=== PATIENT | female | born 1965 | race Caucasian/White ===

== ENCOUNTER → 2024-02-06 09:34 | Outpatient (REF) | payer OTHER, SELFPAY | LOC: HWRAD 09:34 | PROVIDERS: ATTENDING PHYSICIAN Obstetrics & Gynecology Gynecology; FAMILY PHYSICIAN Family Medicine | DX: N95.0 Postmenopausal bleeding (principal) | CPT/HCPCS: 76830; 76856 ==

== ENCOUNTER 2024-07-26 15:43 | Inpatient (IN) | payer OTHER, SELFPAY ==
[2024-07-25] VITALS (16 sets, daily range): BP systolic 153–195; BP diastolic 78–101; BMI 27.7; BMI 27.2
--- NOTE | 2024-07-25 11:47 | ED.GENMED ---
History of Present Illness
General
Chief Complaint: Weakness
Source: patient
Exam Limitations: none
Time Seen by Provider: 07/25/24 11:26
History of Present Illness
History of Present Illness:
58-year-old female relatively sudden onset of left-sided weakness arm and leg. Started about 830. Improving moderately. No history of same. The left arm felt heavy almost like it was asleep. No headache visual issues speech issues double vision
etc. Has had some mild URI symptoms the last couple weeks
Past History
Past History
ED Past Medical History: Hypothyroidism and Other (Hyperparathytoid)
ED Past Surgical History: and Other (hyperparathyroid One lobe removed)
Social History
Tobacco: Non-smoker
Alcohol: Occasional
Drug: None
Personal:
Living: with family
Employment: Employed
Review of Systems
Review of Systems
All Other Systems: Not applicable
Respiratory: Reports no symptoms
Cardiac: Reports no symptoms
ABD/GI: Reports no symptoms
Phy Exam
Physical Exam
Physical Exam:
GENERAL: Alert and oriented in no apparent distress
EYE: Orbits normal.
NECK: Supple, no carotid bruit
ENT: Pharynx without erythema
CARDIAC: Regular rate and rhythm without any obvious murmurs.
LUNGS: Clear breath sounds,normal
ABDOMEN: Soft, without focal tenderness or distention
NEUROLOGICAL: Alert and oriented , cranial nerves II through XII intact. Speech normal. Irfkjh-ic-naej normal. No drift. Ohde-mz-bwbz normal. Light touch intact. Visual wright normal
SKIN: Warm and dry, no rash or lesion, no discoloration, skin intact.
MUSCULOSKELETAL: No edema,no deformity.Good color
PSYCH: Normal and appropriate interaction.
Course
Orders/Labs/Results
Orders:
Orders
07/25/24 11:34
Electrocardiogram (*1) Stat
Reason for Study: Other
Other Reason for Exam: neuro symptoms
CT Head & Neck Angio W/wo IV Urgent
Comment:
Reason For Exam: Subjective left-sided weakness
Cardiac Monitoring- Treatment ONCE
EKG- Treatment ONCE
IV Insert/Care/Rem.- Treatment PRN
Pulse Ox/cont/shift [RESP] Stat
Quantity: 1
07/25/24 11:37
Basic Metabolic Panel Urgent
Complete Blood Count/With Diff Urgent
07/25/24 13:36
Aspirin Chewable [Low Strength Aspirin] 324 mg PO NOW STA
Clopidogrel Bisulfate [Plavix] 300 mg PO NOW STA
Abnormal Lab Results
07/25/24
11:37
Hgb 11.5 L g/dL
(12.0-16.0)
MCV 80.3 L fL
(81.0-99.0)
MCH 24.4 L pg
(27.0-31.0)
MCHC 30.4 L g/dL
(33.0-37.0)
RDW 18.1 H %
(11.5-14.5)
Plt Count 458 H 10^3/uL
(130-400)
Chloride 97 L mmol/L
(98-107)
Glucose 192 H mg/dl
(70-99)
07/25/24 11:37
07/25/24 11:37
Vital Signs
Initial and Last Documented VS:
Initial Vital Signs
Temp Pulse Resp BP Pulse Ox
98.4 F 79 18 195/98 100
07/25/24 11:17 07/25/24 11:17 07/25/24 11:17 07/25/24 11:17 07/25/24 11:17
Last Documented Vital Signs
Temp Pulse Resp BP Pulse Ox
98.4 F 80 17 165/79 99
07/25/24 11:17 07/25/24 13:15 07/25/24 13:15 07/25/24 13:00 07/25/24 13:15
MDM/Problems Addressed
Differential Diagnosis Includes:
Patient describing neurologic symptoms however NIH is 0 and neurologic exam is normal. Neurology was nice to see the patient immediately and agrees. CT CTA. Aspirin Plavix loading.
*Radiology
Radiology exam reviewed: radiology read reviewed (Possible subacute infarct. 2 mm ICA aneurysm)
*Pulse Oximetry
Patient hypoxic: no
*EKG
Interpreted by ED Provider?: Yes
Interpretation: abnormal
Comparison EKG: changes noted
Heart Rate: 81
Rate: normal
Rhythm: sinus
[place]: normal axis
Interval: normal interval
QRS Pattern: left vent hypertrophy
Ischemia: non-specific ST changes
*Critical Care Note
Total Time (30-74mins, 75-104mins- exclusive of procedures): Not Applicable
Update Note
Update Note:
Seen by neurology. Aspirin loaded Plavix. ICA aneurysm incidental. No severe headache. Stable for admission
ED Attending Note
-
Portions of this chart may have been created with voice recognition software.� Occasional wrong word or��sound alike� substitutions may have occurred due to the inherent limitations of voice recognition software.
Discharge Plan
Departure
Patient Disposition: Admit
Date of Disposition: 07/25/24
Time of Disposition: 13:37
Presentation/result/management discussed w/ accepting MD/DO: Neurology
Discharge Problem:
Left-sided weakness, CVA versus TIA, Incidental 2 mm left ICA aneurysm
Prescriptions:
No Action
levothyroxine 75 MCG tablet
75 mcg PO DAILY
aspirin 81 MG tablet,delayed release (DR/EC)
81 mg PO DAILY 20 Days Qty: 20 0RF
benzonatate 100 MG capsule
100 mg PO TIDPRN PRN (Reason: cough) 7 Days Qty: 21 0RF
prednisone 10 MG tablet
10 mg PO .TAPER Qty: 30 0RF
Rx Instructions:
Take 40mg daily x3days, 30mg daily x3days,
20mg daily x3days, 10mg daily x3days.
ferrous sulfate [FeroSul] 325 MG tablet
325 mg PO DAILY 30 Days Qty: 30 0RF
famotidine 20 MG tablet
20 mg PO DAILY 20 Days Qty: 20 0RF
doxycycline hyclate 100 MG capsule
100 mg PO Q12 Qty: 19 0RF
Referrals:
Pedro Luis Hernandez Jr., DO [Family Provider] -
Interventions
Interventions:
*Risk Screen - Suicide Last Done: 07/25/24 11:17
*General Assessment Last Done: 07/25/24 11:17
*Neglect/Abuse Screening Last Done: 07/25/24 11:17
ED- Fall Risk Assessment Last Done: 07/25/24 11:29
ED- Cardiac Assessment Last Done: 07/25/24 11:29
ED- Neurological Assessment Last Done: 07/25/24 11:29
ED- Pulmonary Assessment Last Done: 07/25/24 11:29
Discharge Date and Time
Print Language: SWEDISH
[2024-07-25 12:05] LABS: % Basophils 0.5 % (0-2); % Eosinophils 2.3 % (0-6); % Immature Granulocytes 0.4 % (0-0.5); % Monocytes 4.9 % (1.7-9.3); % Neutrophils 69.9 % (42.2-75.2); Absolute Eosinophils 0.2 10^3/uL (0-0.7); Absolute Lymphocytes 1.7 10^3/uL (1.2-3.4); Absolute Monocytes 0.4 10^3/uL (0.1-0.6); Absolute Neutrophils 5.5 10^3/uL (1.4-6.5); Hematocrit 37.8 % (37.0-47.0); Hemoglobin 11.5 g/dL (12.0-16.0); Mean Corp Hgb Conc. 30.4 g/dL (33.0-37.0); Mean Corpuscular Hgb 24.4 pg (27.0-31.0); Mean Corpuscular Volume 80.3 fL (81.0-99.0); Mean Platelet Volume 8.5 fL (7.4-10.4); Nucleated Red Blood Cells % 0 %; Platelet Count 458 10^3/uL (130-400); Red Blood Cell Count 4.71 10^6/uL (4.20-5.40); Red Cell Dist. Width 18.1 % (11.5-14.5); White Blood Cell Count 7.8 10^3/uL (4.8-10.8)
--- NOTE | 2024-07-25 12:07 | CON.NEURO ---
Addendum entered and electronically signed by Dez Ashraf MD 07/25/24 17:20:
I reviewed the head CT imaging with the patient showing Right frontal hypodensity consistent
patient confirms symptoms began 8:30 this morning, and it has not been long enough time for a stroke to show up on head CT
will order brain MRI with and wo contrast rule out brain tumor.
CTA head/neck showing left carotid paraclinoid 2mm aneurysm, leave it alone
Original Note:
Neuro Assessment/Plan
Assessment
clinically this is a TIA, patient
Plan
Check head CT and CTA head/neck
bp 183/87, permissive HTN until CT head and CTA, ?MAP dependent
Chew 4 baby aspirin, load plavix 300
21 days of DAPT
Lipitor 40
24 hrs of heart monitoring
at our option, admit for MRI though seeing a stroke or not doesn't change the management.
Consultation
Order
Date of Consultation: 07/25/24
Requesting Provider: Ha Stearns
Reason for Consult: left sided weakness
Subjective/Objective
Subjective Data
Date of Service: July 25, 2024
58-year-old female relatively sudden onset of left-sided weakness arm and leg. Started about 830. Improving moderately. No history of same. The left arm felt heavy almost like it was asleep. No headache visual issues speech issues double vision
etc. Has had some mild URI symptoms the last couple weeks
Objective Data
Vital Signs
Temp Pulse Resp BP Pulse Ox
36.9 C 79 18 192/100 92
07/25/24 11:17 07/25/24 11:17 07/25/24 11:17 07/25/24 11:27 07/25/24 11:31
Lab Results
07/25/24 11:37
Patient Allergies
No Known Allergies Allergy (Verified 07/25/24 11:17)
Physical Exam
-
AAOx3, speech clear, language intact to naming repetition and comprehension
VFF, EOMI, face symmetric
full strength b/l UE/LE
sensation intact to touch/pin
DTR normal/symmetric
Medications
-
Home Medications
�Medication �Instructions �Recorded
levothyroxine 75 mcg tablet 75 mcg PO DAILY Thyroid 11/30/20
aspirin 81 mg tablet,delayed 81 mg PO DAILY 20 days #20 tabs 12/02/20
release
benzonatate 100 mg capsule 100 mg PO TIDPRN PRN cough 7 days 12/02/20
#21 caps
famotidine 20 mg tablet 20 mg PO DAILY 20 days #20 tabs 12/02/20
ferrous sulfate 325 mg (65 mg 325 mg PO DAILY 30 days #30 tabs 12/02/20
iron) tablet (FeroSul)
prednisone 10 mg tablet 10 mg PO .TAPER #30 tabs 12/02/20
doxycycline hyclate 100 mg capsule 100 mg PO Q12 Lung/breathing 12/22/20
issues #19 caps
[2024-07-25 12:19] LABS: Blood Urea Nitrogen 15 mg/dl (7-17); Calcium 9.8 mg/dl (8.4-10.2); Carbon Dioxide 26 mmol/L (22-30); Chloride 97 mmol/L (98-107); Estimated Creatinine Clearance 73 ml/min; Glucose 192 mg/dl (70-99); Potassium 3.8 mmol/L (3.5-5.1); Sodium 137 mmol/L (135-145); eGFR > 60.00
[2024-07-25] MEDS: LOW STRENGTH ASPIRIN 324 MG PO (13:46)
[2024-07-25] MEDS: PLAVIX 300 MG PO (13:46)
--- NOTE | 2024-07-25 14:11 | HPS.HSE ---
Family Physician
-
Family Physician: Pedro Luis Hernandez Jr.
Chief Complaint
-
left sided weakness
History of Present Illness
Patient is a 58-year-old female with past medical history significant for hypothyroidism and hx kidney stone who presented to [facility] ED for evaluation of left sided weakness. Patient stated that at approximately 0830 this morning she
had a heavy sensation in her left leg that worked its way up to her left arm that for a moment she almost felt she did not have control of them. She stated symptoms resolved so she went about her day, stopped for gas and when she got out of car
symptoms returned and she felt like she was unable to stand properly and was slightly off balance. She states that she has had a URI for past 2 weeks with cough, congestion and post nasal drip. Last week she reports a day with nausea and vomiting.
She denies fever, chills, chest pain, palpitations, dizziness, confusion, constipation, diarrhea or urinary symptoms.
Medical History
Past Medical History
Past Medical History: Reports Other
Additional Past Medical History:
herpes simplex virus
hypothyroidism
hx kidney stone
Past Surgical History: Reports Other
Additional Past Surgical History:
parathyroidectomy
x2
Social History
Tobacco: Non-smoker
Alcohol: Occasional
Drug: None
Personal:
Living: With Family
Employment: Employed
Family History
Family History: Other (Dad: CVA)
Allergies / Home Medications
Allergies reflects when Allergies were last updated in [facility].
Home Medications with original date entered in [facility]
Allergy/Medication List:
Allergies
Allergy/AdvReac Type Severity Reaction Status Date / Time
No Known Allergies Allergy Verified 07/25/24 11:17
Home Medications
cholecalciferol (vitamin D3) 25 mcg (1,000 unit) tablet (Vitamin D3) 25 mcg PO DAILY 07/25/24
valacyclovir 500 mg tablet (Valtrex) 500 mg PO DAILY 07/25/24
Review of Systems
-
History Source: Patient
Constitutional: Reports No Symptoms
EENT: Reports No Symptoms
Respiratory: Reports No Symptoms
Cardiac: Reports No Symptoms
Abdomen/GI: Reports No Symptoms
: Reports No Symptoms
Musculoskeletal: Reports No Symptoms
Skin: Reports No Symptoms
Neurological: Reports Weakness (left leg and left arm)
Endocrine: Reports No Symptoms
Hematologic/Lymphatic: Reports No Symptoms
Psych: Reports No Symptoms
Physical Exam
Vital Signs
Vital Signs
Temp Pulse Resp BP Pulse Ox
98.4 F 77 23 167/88 94
07/25/24 11:17 07/25/24 13:30 07/25/24 13:30 07/25/24 13:30 07/25/24 13:30
Physical Exam
General: Well Developed, Well Nourished, No Apparent Distress, Comfortable and Conversant
HEENT: NormoCephalic, Moist mucous membranes, Atraumatic, PERRLA, [place] Conjunctivae, Nose Appears Normal and Ears Appear Normal
Respiratory: Clear and Non Labored Respirations
Cardiac: S1/S2 and Regular Rhythm; No Murmur, Rub or Gallop
Breast: Deferred by me
GI: Soft, Non Tender, Non Distended and Normal Bowel Sounds; No Organomegaly
Rectal: Deferred by Provider
Genito-urinary: Deferred by me
Musculoskeletal: No Clubbing, No Cyanosis and No Edema
Skin: Warm and IV/Catheter Site; No Rash
Neuro: Awake, Alert, AO x 3, Nonfocal/grossly intact, Cranial Nerves Intact and No Sensory Deficits
Psych: Calm and Intact Judgment/Insight
Laboratory Results
-
07/25/24 11:37
07/25/24 11:37
Data Reviewed
-
CT Scan: Report Reviewed by me (CT Brain: There is no evidence of acute hemorrhage. There is a 1.0 cm hypodensity within the anterior/inferior right frontal lobe white matter, possible subacute infarction. Consider MRI for further evaluation. CTA
Head: There is a 2 x 2 mm posteriorly directed saccular aneurysm along the left para)
Lab Data: Labs Reviewed by me (hgb 11.5)
Impression/Plan
-
IMPRESSION/PLAN:
#left sided weakness
CT Brain: There is no evidence of acute hemorrhage. There is a 1.0 cm hypodensity within the anterior/inferior right frontal lobe white matter, possible subacute infarction. Consider MRI for further evaluation.
CTA Head: There is a 2 x 2 mm posteriorly directed saccular aneurysm along the left paraclinoid ICA. There is mild stenosis within the right paraclinoid ICA.
CTA Neck: No significant arterial stenosis. Left dominant vertebral artery.
Groundglass opacities within the bilateral upper lobes possibly hypoventilatory change, less likely interstitial edema or infection.
EKG: NORMAL SINUS RHYTHM WITH SINUS ARRHYTHMIA
MINIMAL VOLTAGE CRITERIA FOR LVH, MAY BE NORMAL VARIANT ( R in aVL )
SEPTAL INFARCT , AGE UNDETERMINED
INFERIOR INFARCT , AGE UNDETERMINED
- admit to telemetry
- start aspirin
- start Plavix
- start Lipitor
- consult Neurology
- MRI in morning
- permissive HTN
#herpes simplex virus
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
- continue valacyclovir
#hypothyroidism
#hx kidney stone
Code status: Full Code
DVT prophylaxis: SCDs
--- NOTE | 2024-07-25 14:50 | W.PN.UPDATE ---
Update Note
Progress Note Update
This is an addendum to H&P written by ASHVIN Caputo
I saw and examined the patient.
The DIRECTOR OF [employer]'s note was reviewed and I agree with the note.
Comment:
Ms. Pari Houston is a 58 yo woman with hx hypothyroidism, parathyroidism s/p surgery presents to the ER for sudden onset left-sided weakness in arm and leg followed by difficulty in balance.
Triage VS: T 98.4, P 79, RR 18, BP 195/98, SpO2 100%
On my exam symptoms currently resolved; speech normal, no pronator drift, 5/5 strength upper and lower extremitise.
LABS: WBC 7.8, Hg 11.5, PLT 458, Na 137, K+ 3.8, Cl 97, CO2 26, Cr 0.8, Glucose 192
CT Head/CTA Head/Neck:
IMPRESSION:
CT Brain: There is no evidence of acute hemorrhage. There is a 1.0 cm hypodensity within the anterior/inferior right frontal lobe white matter, possible subacute infarction. Consider MRI for further evaluation.
CTA Head: There is a 2 x 2 mm posteriorly directed saccular aneurysm along the left paraclinoid ICA. There is mild stenosis within the right paraclinoid ICA.
CTA Neck: No significant arterial stenosis. Left dominant vertebral artery.
Groundglass opacities within the bilateral upper lobes possibly hypoventilatory change, less likely interstitial edema or infection.
TIA versus Ischemic Stroke
-s/p asa/plavix loading dose in ER
-admit to observation/telemetry
-MRI ordered
-TTE
-PT/OT/ST
-continue asa/plavix x 21 days then aspirin indefinitely
-start Lipitor
-appreciate Neurology consult
-patient will likely need continued cardiac monitoring on discharge (team to touch base with cardiology pre discharge)
[2024-07-25 16:15] LABS: ALT (SGPT) 24 U/L (0-35); AST (SGOT) 22 U/L (14-36); Alkaline Phosphatase 93 U/L (38-126); Total Bilirubin 0.8 mg/dl (0.2-1.3)
[2024-07-25] MEDS: LIPITOR 40 MG PO (18:44)
[2024-07-25] MEDS: PEPCID 20 MG PO (21:17)
[2024-07-26] VITALS (10 sets, daily range): BP systolic 74–191; BP diastolic 54–100
[2024-07-26 08:09] LABS: Hematocrit 34.2 % (37.0-47.0); Hemoglobin 10.6 g/dL (12.0-16.0); Mean Corpuscular Hgb 25.1 pg (27.0-31.0); Mean Platelet Volume 8.7 fL (7.4-10.4); Platelet Count 414 10^3/uL (130-400); Red Blood Cell Count 4.22 10^6/uL (4.20-5.40); White Blood Cell Count 6.5 10^3/uL (4.8-10.8)
[2024-07-26 08:17] LABS: Blood Urea Nitrogen 15 mg/dl (7-17); Calcium 9.4 mg/dl (8.4-10.2); Carbon Dioxide 26 mmol/L (22-30); Chloride 104 mmol/L (98-107); Estimated Creatinine Clearance 83 ml/min; Glucose 125 mg/dl (70-99); Sodium 138 mmol/L (135-145); eGFR > 60.00
[2024-07-26] MEDS: PLAVIX 75 MG PO (08:19)
[2024-07-26] MEDS: LOW STRENGTH ASPIRIN 81 MG PO (08:19)
[2024-07-26] MEDS: VALTREX 500 MG PO (08:19)
[2024-07-26 09:12] LABS: HDL Cholesterol 57 mg/dl; LDL Cholesterol, Calculated 127 mg/dl; Total Cholesterol 201 mg/dl (50-199); Triglyceride 86 mg/dl (10-149); Very Low Density Lipoprotein 17 mg/dl (0-30)
--- NOTE | 2024-07-26 10:02 | W.PN.NEURO.1 ---
Today's Communication / Plan
-
low grade glioma neurosurgical evaluation requested
d/c aspirin and Plavix
continue Lipitor 40 for now
MRI findings discussed with patient
Neuro Assessment/Plan
Assessment
Head CT 'right frontal periventricular white matter subacute stroke'
CTA head/neck no stenosis or occlusions, 2mm paraclinoid aneurysm
Brain MRI w and wo contrast imgs and rept rev'd, right frontal periventricular white matter lesion, 1.7 cm, agree most likely low grade glioma, without mass effect or edema
clinically presented as TIA
Head CT apparent subacute stroke, however timing of symptoms does not match, so MRI with gado was obtained finding low grade glioma
Plan
low grade glioma neurosurgical evaluation requested
d/c aspirin and Plavix
continue Lipitor 40 for now
MRI findings discussed with patient
Subjective/Objective
Subjective Data
Date of Service: July 26, 2024
feels well.
MRI found to have low grade glioma, as the timing did not make sense for a subacute stroke.
no seizure history
Objective Data
Vital Signs
Temp Pulse Resp BP Pulse Ox
36.4 C 69 18 168/98 98
07/26/24 07:45 07/26/24 07:45 07/26/24 07:45 07/26/24 07:45 07/26/24 08:10
Lab Results
07/26/24 07:38
07/26/24 07:38
Sodium 138 mmol/L (135-145) 07/26/24 07:38
Potassium 4.0 mmol/L (3.5-5.1) 07/26/24 07:38
BUN 15 mg/dl (7-17) 07/26/24 07:38
Glucose 125 mg/dl (70-99) H 07/26/24 07:38
Calcium 9.4 mg/dl (8.4-10.2) 07/26/24 07:38
LDL Cholesterol, Calc 127 mg/dl 07/26/24 07:38
Patient Allergies
No Known Allergies Allergy (Verified 07/25/24 11:17)
Physical Exam
-
AAOx3, speech clear, language intact to naming repetition and comprehension
VFF, EOMI, face symmetric
full strength b/l UE/LE
sensation intact to touch/pin
DTR normal/symmetric
[2024-07-26 12:45] LABS: Glycohemoglobin (HgbA1c) 6.6 % (4.0-5.6)
--- NOTE | 2024-07-26 13:42 | CON.NS ---
Consultation
-
Date/Time Consultation Performed: 13:42; 07/26/2024
Performing Provider: Nino
Chief Complaint
History of Present Illness
This is a neurosurgical consultation on a 58-year-old female with active medical issues including hypothyroidism, history of kidney stone, who presented with left-sided weakness. She reported a heavy sensation in her left leg that worked its way up
her left arm with sensation of not having any control over them. Symptoms then recurred later on that day. She did have a upper respiratory infection for the last several weeks. She presented to the emergency room for further evaluation. CT of
the head demonstrated hypodense 1 cm area within the right anterior inferior frontal lobe white matter, MRI was then obtained. Neurology was consulted.
MRI may note of possible low-grade glioma, and therefore neurosurgery was consulted.
Patient seen and examined. Patient's friend is in room. Patient reports that she had sudden onset of heaviness of the left arm, and left leg while she was in the shower yesterday morning. The symptoms then resolved, and then when she was on her
way to work, and at the gas station, the symptoms came on again where she felt like her left side would give out on her. This did not affect her face. She denies having symptoms prior. She does not have a family history of demyelinating disease,
multiple sclerosis. However, she does report that she does not know the entire medical history with regards to her siblings.
She reports that she has had longstanding history of migraine headaches, usually which initiate with visual changes, which appear to be consistent with scintillating scotomas, and alleviated by laying down.
She cannot recall a specific episode where she has had significant pain behind the eye, or any diplopia.
She reports that she has never had any prior cranial imaging other than this admission.
Review of Systems
-
10 point review systems including constitutional, ENT, cardiovascular, respiratory, GI, , endocrinologic, hematologic, neurologic, musculoskeletal was performed, and was negative, except for stated in HPI
Medication and Allergies
Home Medications
Home Medications
�Medication �Instructions �Recorded
cholecalciferol (vitamin D3) 25 25 mcg PO DAILY Supplement 07/25/24
mcg (1,000 unit) tablet (Vitamin
D3)
valacyclovir 500 mg tablet 500 mg PO DAILY Infection 07/25/24
(Valtrex)
Allergies
Allergies
Allergy/AdvReac Type Severity Reaction Status Date / Time
No Known Allergies Allergy Verified 07/25/24 11:17
Physical Exam
-
Exam:
Awake, alert, no apparent distress
Cranial nerves II through grossly intact
Motor: 5/5 strength bilaterally in upper extremities with no evidence of pronator drift.
Speech is fluent, comprehension intact, repetition normal
Sensation to light touch is intact bilaterally in upper and lower extremities
Head is normocephalic atraumatic
Neck is supple
Breathing nonlabored
Cardiac: Regular rate
Abdomen soft
Extremities are warm
MRI of the brain with and without contrast performed on 07/25/2024 was reviewed. Images reviewed interpreted by me. There is evidence of a T2, FLAIR signal hyperintense lesion which measures approximately 1.5 cm in largest diameter just adjacent to
the right frontal horn of the lateral ventricle. There is no evidence of abnormal contrast-enhancement. Imaging could be consistent with possible encephalomalacia from prior stroke, versus low-grade glioma. DWI images do not demonstrate
restricted diffusion.
Agree with radiology report the differential diagnosis also includes chronic ischemia and gliosis from chronic ischemia, versus demyelinating lesion.
Assessment / Plan
-
This is a 58-year-old female who presents with acute onset of intermittent symptoms of left-sided weakness of arm and leg. It is not associated with any headache, or speech changes.
Imaging demonstrates non enhancing deep white matter right frontal lesion, periventricular with no obvious evidence of adjacent vasogenic edema.
Differential diagnosis includes low-grade glioma, versus demyelinating lesion, versus chronic gliosis.
Extensive discussion was held with the patient at bedside. At the present time, I would like to hold off on any urgent/emergent biopsy. Would recommend ruling out other diagnoses, which would include demyelinating. Recommend outpatient follow-up
with repeat brain MRI in approximately 10 to 12 weeks.
If at that time, workup is negative, we can discuss management options which would include excisional biopsy, versus expectant management with ongoing surveillance imaging.
She expresses understanding of this, and all questions or concerns that she and her friend had were answered and addressed.
--- NOTE | 2024-07-26 13:58 | W.PN.HOSP.TC ---
Addendum entered and electronically signed by Igncaia Brush MD 07/26/24 16:07:
I saw and evaluated the patient independently. I reviewed the resident�s note and agree with findings and plan as documented by Dr. Balderas.
GENERAL: well developed, well nourished, female in no apparent distress
HEENT: NC/AT--no O2 requirements
HEART: regular rate and rhythm, +S1, +S2
LUNGS : clear to auscultation bilaterally
ABDOM: soft, nontender, nondistended, + bowel sounds
EXT: no cyanosis, clubbing, or edema
NEUROLOGIC: grossly intact
Left-sided weakness--brought in for stroke w/u but MRI positive for glioma--apprec neuro and neurosurgery--cannot r/u demyelinating issue (i. e. MS)--for LP today--apprec IR--stop asa/plavix--cont statin for LDL 120
URI--Chest congestion, nasal congestion--On CTA, groundglass opacities noted in bilateral upper lobes--start cephalexin 500 mg TID x 7 days
Possible Type 2 Diabetes Mellitus--HGB A1C 6.6 but fasting BS 125--would not start any meds at this time--would follow up with PCP
DVT proph
code status -- FULL CODE
Original Note:
Today's Communication/Plan
-
Neurosurgery eval
Assessment / Plan
Assessment / Plan
58-year-old female who presents with acute onset left sided arm and leg weakness
Left-sided weakness:
Initial suspicion for stroke given acute onset neurodeficits. Ruled out with subsequent imaging
CTA with 1 cm hypodensity in inferior right frontal lobe.
MRI with 1.7 cm lesion in the right frontal lobe periventricular white matter, most suspicious for a low-grade glioma. No evidence of acute infarct.
-Discontinue DAPT
-Lipid panel LDL 120, continue statin
-Appreciate neuro recs
-Will await neurosurgical evaluation
URI:
Chest congestion, nasal congestion:
On CTA, groundglass opacities noted in bilateral upper lobes
Diabetes Mellitus:
New diagnosis. HbA1c 6.6
-Outpatient follow up
Anticipated Discharge: Within 24 hours
Subjective/Interval History
-
Date of Service: July 26, 2024
No recurrence of symptoms. No acute overnight events
Objective Data
-
Labs:
Laboratory Results
07/26/24
07:38
WBC 6.5
Hgb 10.6 L
Hct 34.2 L
Plt Count 414 H
Sodium 138
Potassium 4.0
Chloride 104
Carbon Dioxide 26
BUN 15
Creatinine 0.7
Glucose 125 H
Calcium 9.4
Vital Signs:
Vital Signs
Temp Pulse Resp BP Pulse Ox
97.6 F 67 22 186/94 97
07/26/24 11:23 07/26/24 11:23 07/26/24 11:23 07/26/24 11:23 07/26/24 11:23
I&O
07/25/24 07/26/24 07/27/24
06:59 06:59 06:59
Intake Total 480 / 480
Balance 480 / 480
Review of Systems
-
History Source: Patient
Constitutional: Denies Fever
Respiratory: Denies No Symptoms
Cardiac: Denies Chest Pain
Neuro: Denies Weakness or Numbness
Physical Exam
-
General: Well Developed, Well Nourished, No Apparent Distress and Comfortable
HEENT: Normocephalic, Atraumatic and Moist Mucous Membranes
Respiratory: Clear to Auscultation and Non Labored Respirations; Negative Wheezes, Rales, Rhonchi or Crackles
Cardiac: Regular Rhythm and S1/S2; Negative Murmur, Rub or Calf Tenderness
GI: Soft, Nontender, Nondistended and Normal Bowel Sounds
Skin: Warm and Dry
Neuro: Awake, Alert, Oriented, No Motor Deficits, No Sensory Deficits and Other (Cranial nerves 2-12 intact, NIHSS = 0); Negative Slurred Speech or Facial Droop
Psych: Calm
[2024-07-26] MEDS: KEFLEX 500 MG PO ×2 (16:03→21:13)
[2024-07-26 17:40] LABS: CSF Tube # 4
[2024-07-26 17:41] LABS: CSF Clarity Clear; CSF Color Colorless
[2024-07-26 17:48] LABS: Spinal Fluid Glucose 62 mg/dl (40-70); Spinal Fluid Protein 66 mg/dl (12-60)
--- NOTE | 2024-07-26 17:59 | CM ---
Alert awake oriented patient who lives with her Dontae in a 2 story home with 2 steps to enter and bed bathroom first floor.Spoke with mary Barron while pt off floor.She is independent in driving and in all activities of daily living.Regular
Observation letter given explained . Copt not signed.
No adaptive devices
Never had VN/SNF
Pharmacy [facility]
PCP Dr Hernandez
PLAN Home no anticipated needs
[2024-07-26 18:17] LABS: White Cell Count/CSF 3 mm^3 (0-5)
[2024-07-26] MEDS: LIPITOR 40 MG PO (18:23)
[2024-07-26 18:40] LABS: Red Cell Count/CSF 74 mm^3
--- NOTE | 2024-07-26 19:47 | PTCARENOTE ---
Patient and patient's family expressed that they would like the patient transferred to [facility] for continued care. They were made aware to speak with the medical team in the AM. Dr Ashraf and Dr Brush updated.
[2024-07-26] MEDS: TRANDATE 100 MG PO (20:26)
[2024-07-26] MEDS: MELATONIN 5 MG PO (21:13)
[2024-07-26] MEDS: PEPCID 20 MG PO (21:13)
[2024-07-27] VITALS (8 sets, daily range): BP systolic 111–172; BP diastolic 63–83
[2024-07-27 07:22] LABS: Hematocrit 33.4 % (37.0-47.0); Hemoglobin 10.5 g/dL (12.0-16.0); Mean Corp Hgb Conc. 31.4 g/dL (33.0-37.0); Mean Corpuscular Hgb 25.1 pg (27.0-31.0); Mean Corpuscular Volume 79.7 fL (81.0-99.0); Mean Platelet Volume 8.6 fL (7.4-10.4); Platelet Count 393 10^3/uL (130-400); Red Blood Cell Count 4.19 10^6/uL (4.20-5.40); Red Cell Dist. Width 17.8 % (11.5-14.5); White Blood Cell Count 5.4 10^3/uL (4.8-10.8)
[2024-07-27 08:03] LABS: Blood Urea Nitrogen 18 mg/dl (7-17); Calcium 9.3 mg/dl (8.4-10.2); Carbon Dioxide 23 mmol/L (22-30); Chloride 105 mmol/L (98-107); Estimated Creatinine Clearance 83 ml/min; Glucose 112 mg/dl (70-99); Potassium 4.3 mmol/L (3.5-5.1); Sodium 139 mmol/L (135-145); eGFR > 60.00
[2024-07-27] MEDS: FLUSH (NSS) 1 FLUSH IV (10:02)
[2024-07-27] MEDS: TRANDATE 100 MG PO ×2 (10:03→20:28)
[2024-07-27] MEDS: KEFLEX 500 MG PO ×3 (10:03→22:56)
[2024-07-27] MEDS: VALTREX 500 MG PO (10:03)
--- NOTE | 2024-07-27 13:54 | W.PN.HOSP.TC ---
Today's Communication/Plan
-
follow up on LP
await brain SPECT
possible d/c Monday? after scan
Assessment / Plan
Assessment / Plan
pt is a 58 year old female
Left-sided weakness--brought in for stroke w/u but MRI positive for glioma--apprec neuro and neurosurgery--cannot r/u demyelinating issue (i. e. MS)--s/p LP 07/26/24--apprec IR--stop asa/plavix--cont statin for LDL 120--for brain SPECT scan Monday
URI--Chest congestion, nasal congestion--On CTA, ground glass opacities noted in bilateral upper lobes--start cephalexin 500 mg TID x 7 days
Possible Type 2 Diabetes Mellitus--HGB A1C 6.6 but fasting BS 125, 112--random 192 (IF anything, would be prediabetes in my opinion)--would not start any meds at this time--would follow up with PCP
Essential HTN--cont labetalol--would d/c on med--low dose Xanax PRN for anxiety (from new diagnosis above)
DVT proph
code status -- FULL CODE
Anticipated Discharge: > 48 hours
Subjective/Interval History
-
Date of Service: July 27, 2024
pt without c/o
Objective Data
-
Labs:
Laboratory Results
07/27/24
06:26
WBC 5.4
Hgb 10.5 L
Hct 33.4 L
Plt Count 393
Sodium 139
Potassium 4.3
Chloride 105
Carbon Dioxide 23
BUN 18 H
Creatinine 0.7
Glucose 112 H
Calcium 9.3
Vital Signs:
max temp for 24 hours
07/26/24
17:40
Temp 98 F
Vital Signs
Temp Pulse Resp BP Pulse Ox
97.4 F 58 18 150/76 99
07/27/24 11:50 07/27/24 11:50 07/27/24 11:50 07/27/24 11:50 07/27/24 11:50
I&O
07/26/24 07/27/24 07/28/24
06:59 06:59 06:59
Intake Total 480 / 480 480 / 480
Balance 480 / 480 480 / 480
Review of Systems
-
All other systems: Reviewed and negative
Physical Exam
-
General: Well Developed, Well Nourished and No Apparent Distress
HEENT: Normocephalic and Atraumatic
Respiratory: Clear to Auscultation; Negative Wheezes or Rhonchi
Cardiac: Regular Rhythm and S1/S2; Negative Murmur
GI: Soft, Nontender, Nondistended and Normal Bowel Sounds
Musculoskeletal: No Clubbing, No Cyanosis and No Edema
Neuro: Awake
Psych: Calm
[2024-07-27] MEDS: LIPITOR 40 MG PO (17:48)
[2024-07-27] MEDS: PEPCID 20 MG PO (22:56)
[2024-07-27] MEDS: MELATONIN 5 MG PO (22:56)
[2024-07-28 03:19] VITALS: BP 131/68
[2024-07-28 06:59] LABS: Mean Corp Hgb Conc. 31.3 g/dL (33.0-37.0); Mean Corpuscular Hgb 25.3 pg (27.0-31.0); Mean Corpuscular Volume 80.8 fL (81.0-99.0); Mean Platelet Volume 9.3 fL (7.4-10.4); Platelet Count 395 10^3/uL (130-400); Red Blood Cell Count 3.96 10^6/uL (4.20-5.40); Red Cell Dist. Width 17.9 % (11.5-14.5); White Blood Cell Count 6.2 10^3/uL (4.8-10.8)
[2024-07-28 07:37] LABS: Blood Urea Nitrogen 21 mg/dl (7-17); Calcium 9.2 mg/dl (8.4-10.2); Carbon Dioxide 25 mmol/L (22-30); Chloride 106 mmol/L (98-107); Estimated Creatinine Clearance 83 ml/min; Glucose 115 mg/dl (70-99); Potassium 4.5 mmol/L (3.5-5.1); Sodium 139 mmol/L (135-145); eGFR > 60.00
[2024-07-28 07:45] VITALS: BP 158/78
[2024-07-28] MEDS: KEFLEX 500 MG PO ×3 (09:39→21:03)
[2024-07-28] MEDS: FLUSH (NSS) 1 FLUSH IV (09:39)
[2024-07-28] MEDS: TRANDATE 100 MG PO ×2 (09:39→21:03)
[2024-07-28] MEDS: VALTREX 500 MG PO (09:40)
--- NOTE | 2024-07-28 09:44 | W.PN.HOSP.TC ---
Today's Communication/Plan
-
see bold
Assessment / Plan
Assessment / Plan
Gen: NAD, AAOx3.
Eyes: EOMI, PERRLA, no scleral icterus.
Neck: supple.
CV: RRR, +S1/S2, no m/r/g.
Resp: CTAB, no rales, wheezes, or rhonchi.
Abd: +BS, soft, NT, ND
Skin: No rashes.
Neuro: CN 2-12 intact, non-focal.
Psych: Normal mood and affect.
CT Brain: There is no evidence of acute hemorrhage. There is a 1.0 cm hypodensity within the anterior/inferior right frontal lobe white matter, possible subacute infarction. Consider MRI for further evaluation.
CTA Head: There is a 2 x 2 mm posteriorly directed saccular aneurysm along the left paraclinoid ICA. There is mild stenosis within the right paraclinoid ICA.
CTA Neck: No significant arterial stenosis. Left dominant vertebral artery. Groundglass opacities within the bilateral upper lobes possibly hypoventilatory change, less likely interstitial edema or infection.
MRI brain: 1.7 cm lesion in the right frontal lobe periventricular white matter with T2/FLAIR hyperintense signal, T1 hypointense signal, and hypoenhancement. Imaging characteristics are considered most suspicious for a low-grade glioma. Gliosis
from chronic ischemia or a solitary demyelinating lesion would be potential alternative but probably less likely considerations. No MRI evidence for an acute infarct.
R frontal lobe mass:
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
-Presented with L-sided weakness
-seen by neuro and neurosurgery
-s/p LP 07/26/24, follow CSF studies for demyelinating disease
-for brain SPECT scan 07/29/24
Other problems:
URI: started on cephalexin 500mg TID x 7 days
DM2: new Dx, place on diabetic diet, outpt f/u with PCP
Essential HTN: cont labetalol
Anxiety: from new diagnosis above, Xanax PRN
FULL/SCDs
Anticipated Discharge: Within 24 hours
Subjective/Interval History
-
Date of Service: July 28, 2024
No new complaints.
Objective Data
-
Labs:
Laboratory Results
07/28/24
06:03
WBC 6.2
Hgb 10.0 L
Hct 32.0 L
Plt Count 395
Sodium 139
Potassium 4.5
Chloride 106
Carbon Dioxide 25
BUN 21 H
Creatinine 0.7
Glucose 115 H
Calcium 9.2
Vital Signs:
Vital Signs
Temp Pulse Resp BP Pulse Ox
98.1 F 61 18 158/76 99
07/28/24 07:45 07/28/24 09:39 07/28/24 07:45 07/28/24 09:39 07/28/24 07:45
I&O
07/27/24 07/28/24 07/29/24
06:59 06:59 06:59
Intake Total 480 / 480 1919
Balance 480 / 480 1919
--- NOTE | 2024-07-28 10:32 | CM ---
Patient seen at bedside. Patient stated that she was aware of the change to inp status. Patient with no concerns at this time for discharge planning needs.
Plan; home with no needs anticipated.
[2024-07-28 15:30] VITALS: BP 132/77
[2024-07-28] MEDS: LIPITOR 40 MG PO (17:35)
[2024-07-28] MEDS: PEPCID 20 MG PO (21:04)
[2024-07-28] MEDS: MELATONIN 5 MG PO (21:04)
[2024-07-28 23:58] VITALS: BP 132/77
[2024-07-29 07:30] VITALS: BP 157/77
[2024-07-29] MEDS: TRANDATE 100 MG PO (08:48)
[2024-07-29] MEDS: VALTREX 500 MG PO (08:48)
[2024-07-29] MEDS: KEFLEX 500 MG PO (08:48)
--- NOTE | 2024-07-29 08:52 | W.PN.NEURO.1 ---
Today's Communication / Plan
-
.
Neuro Assessment/Plan
Assessment
This is a 58-year-old RH female who presented to on 07/25/24 with report of sudden onset left-sided paresthesias and weakness starting at 0830, with complete resolution of symptoms around 1200 on 07/25/24. Blood pressure was 183/87 on arrival.
PMH: Migraine with aura, hypothyroid, left parathyroid adenoma, renal calculi
Surgical History: x2, parathyroidectomy
Social: Works as a cash accountant. Nonsmoker.
FH: Father- hemochromatosis
Head CT 'right frontal periventricular white matter subacute stroke'
CTA head/neck no stenosis or occlusions, 2mm paraclinoid aneurysm
Brain MRI w and wo contrast imgs and rept rev'd, right frontal periventricular white matter lesion, 1.7 cm, suggestive of low grade glioma, without mass effect or edema, but cannot exclude demyelinating lesion. Negative for acute infarct.
CSF: protein 66, results pending.
I. Transient Left-sided weakness and paresthesias.
II. MRI brain suggestive of a right frontal lobe hypointense white matter lesion; possibly suggestive of a glioma vs demyelinating lesion.
III. History of migraine with aura.
IV. Hypertension.
V. Hyperlipidemia.
. Left paraclinoid ICA [id number] aneurysm, noncontributory to current symptoms.
VII. URI.
Plan
-Per Dr. Ashraf, awaiting SPECT scan. Delay obtaining SPECT scan due to delayed delivery of contrast. Patient does not wish to stay any longer for imaging and would like to leave. Per Neurology, okay for patient to leave and obtain further imaging as an
outpatient. She has made arrangements to follow-up with Neurology at [facility].
-Okay to obtain Cervical spine MRI w/ and w/o contrast as an outpatient.
-Per Dr. Ashraf, d/c aspirin and Plavix.
-Continue Lipitor 40.
-Provide patient with a stroke education packet.
-Awaiting CSF cultures, provided patient with Neurology office info to contact us for results at the end of the week.
-Follow-up with Neurosurgery/neurology at [facility] as planned.
Subjective/Objective
Subjective Data
Date of Service: July 29, 2024
No acute events overnight. Patient denies any recurrence of symptoms. She denies headache, dizziness, vision changes, speech/swallow difficulty, numbness, weakness, chest pain, palpitations, and shortness of breath.
Objective Data
Vital Signs
Temp Pulse Resp BP Pulse Ox
97.8 F 75 18 132/77 95
07/28/24 23:58 07/28/24 23:58 07/28/24 23:58 07/28/24 23:58 07/28/24 23:58
Lab Results
07/28/24 06:03
07/28/24 06:03
Sodium 139 mmol/L (135-145) 07/28/24 06:03
Potassium 4.5 mmol/L (3.5-5.1) 07/28/24 06:03
BUN 21 mg/dl (7-17) H 07/28/24 06:03
Glucose 115 mg/dl (70-99) H 07/28/24 06:03
Calcium 9.2 mg/dl (8.4-10.2) 07/28/24 06:03
LDL Cholesterol, Calc 127 mg/dl 07/26/24 07:38
Patient Allergies
No Known Allergies Allergy (Verified 07/25/24 11:17)
Review of Systems
-
History Source: Patient
EENT: Negative Blurry Vision, Decreased Vision or Swallowing Difficulty
Respiratory: Negative Trouble Breathing
Cardiac: Negative Chest Pain or Palpitations
Neuro: Negative Headache, Weakness, Numbness or Speech Problem
Physical Exam
-
General: Well Developed, Well Nourished and No Apparent Distress
Eyes: No Ptosis and PERRLA
HEENT: Normocephalic and Atraumatic
Neck: Full Range of Motion
Respiratory: No Dyspnea
GI: Non-distended
Skin: Warm and Dry
Extremities: No Clubbing, No Cyanosis and No Edema
Psych: Unremarkable
Extended Neurological Exam
Mood & Affect: Mood Unremarkable and Affect Unremarkable
Attention Span & Concentration: Awake, Alert and Interactive
Memory: Unremarkable and Able to Recall
Tremor: Hand Tremor Absent and Head Tremor Absent
Involuntary Movement: None
Speech: Quality Unremarkable, Quantity Unremarkable and Rate of Production Unremarkable
Cranial Nerve II: Left Eye: Pupillary Reactivity Unremarkable, Pupillary Size Unremarkable and Visual Jones Intact
Cranial Nerve II: Right Eye: Pupillary Reactivity Unremarkable, Pupillary Size Unremarkable and Visual Jones Intact
Cranial Nerves III, IV, : Extraocular Movement: Extraocular Movement Full in all Directions
Cranial Nerve V: Facial Sensation: Intact to Light Touch
Cranial Nerve VII: Facial Symmetry: Normal Facial Symmetry
Cranial Nerve VIII: Hearing: Unremarkable Hearing to Normal Conversational Volume
Cranial Nerves IX, X: Palate Movement: Palate Elevation Symmetric
Cranial Nerve XI: Shoulder Shrug: Unremarkable
Cranial Nerve XII: Tongue Protusion: Midline
Muscle Strength, Overall: Full Throughout
Muscle Bulk & Tone: Bulk Unremarkable and Tone Unremarkable
Pronator Drift: No Drift in Upper Extremities and No Drift in Lower Extremities
Deep Tendon Reflexes: Unremarkable Throughout
Cold Sensation: Unremarkable
Vibration Sensation: Unremarkable
Touch Sensation: Double Simultaneous Stimulation Unremarkable
Coordination: [id number]-[id number]-[id number] Testing Unremarkable
Babinski Sign: Absent Bilaterally
Modified Sevier Score (MRS)
-
Modified Sevier Scale (mRS): No symptoms
Score: 0
Data Reviewed
-
CT-A: Report Reviewed and Image Reviewed
MRI Head: Report Reviewed and Image Reviewed
MRI Cervical Spine: Pending
Labs: Report Reviewed
Lipid Profile: Report Reviewed
HgbA1C: Report Reviewed
Reviewed with: Physician and Patient
Medications
-
Active Medications
Generic Name Dose Route Start Last Admin
Trade Name Freq PRN Reason Stop Dose Admin
Acetaminophen 650 mg 07/25/24 17:27
Acetaminophen 325 Mg Tablet PO 08/22/24 17:26
Q4HPRN PRN
TINAJERO, mild pain, or temp >100.4F
Alprazolam 0.25 mg 07/26/24 17:00
Alprazolam 0.25 Mg Tablet PO 08/23/24 16:59
Q8HPRN PRN
anxiety
Atorvastatin Calcium 40 mg 07/25/24 18:00 07/28/24 17:35
Atorvastatin (Lipitor) 40 Mg Tablet PO 08/22/24 17:59 40 mg
QPM DEMARCUS Administration
Cephalexin HCl 500 mg 07/26/24 16:00 07/29/24 08:48
Cephalexin 500 Mg Capsule PO 500 mg
TID DEMARCUS Administration
Famotidine 20 mg 07/25/24 22:00 07/28/24 21:04
Famotidine 20 Mg Tablet PO 08/22/24 21:59 20 mg
HS DEMARCUS Administration
Labetalol HCl 100 mg 07/26/24 20:00 07/29/24 08:48
Labetalol 100 Mg Tablet PO 08/23/24 19:59 100 mg
BID DEMARCUS Administration
Melatonin 5 mg 07/26/24 22:00 07/28/24 21:04
Melatonin 5 Mg Tablet PO 08/23/24 21:59 5 mg
HS DEMARCUS Administration
Sodium Chloride 0 flush 07/25/24 18:00 07/28/24 09:39
Sodium Chloride 0.9% (Flush) Syringe IV 08/22/24 17:59 1 flush
PER PROTOCOL DEMARCUS Administration
Valacyclovir HCl 500 mg 07/26/24 08:00 07/29/24 08:48
Valacyclovir Hcl 500 Mg Tablet PO 08/05/24 07:59 500 mg
DAILY DEMARCUS Administration
Home Medications
�Medication �Instructions �Recorded
cholecalciferol (vitamin D3) 25 25 mcg PO DAILY Supplement 07/25/24
mcg (1,000 unit) tablet (Vitamin
D3)
valacyclovir 500 mg tablet 500 mg PO DAILY Infection 07/25/24
(Valtrex)
NIH Stroke Score
Subsequent NIH Scale
Date of Subsequent NIH Scale: 07/29/24
Time of Subsequent NIH Scale: 10:00
NIH Stroke Score
Level of Consciousness: 0 - Alert
LOC Questions: 0-Answers both correctly
LOC Commands: 0-Performs both correctly
Best Horizontal Gaze: 0-Normal
Visual Jones: 0=Normal, no visual loss
Facial Palsy: 0=Normal, symmetrical
Motor - Right Arm: 0=No drift 10 seconds
Motor - Left Arm: 0=No drift 10 seconds
Motor - Right Le-No drift 5 seconds
Motor - Left Le-No drift 5 seconds
Limb Ataxia: 0-Absent
Sensation: 0-Normal
Best Language: 0-No aphasia
Dysarthria: 0-Normal
Extinction and Inattention: 0-No abnormality
Total Score:: 0
Modified Malvin (mRS) Score
Modified Malvin Scale (mRS): No symptoms
Score: 0
--- NOTE | 2024-07-29 10:32 | CM ---
Patient seen at bedside. patient for testing today and eager for discharge. Patient asking about [facility] physicians to follow up with. CM will continue to follow for discharge planning needs.
Plan; home with no needs and follow up with physicians.
--- NOTE | 2024-07-29 10:55 | W.PN.UPDATE ---
Update Note
Progress Note Update
I saw and evaluated the patient. I reviewed the resident�s note and agree with findings and plan as documented in the resident�s note.
Pt seen and examined with TAWANNA Tee present at bedside for the entirety of the interview and physical exam.
Gen: NAD, AAOx3.
Eyes: EOMI, PERRLA, no scleral icterus.
Neck: supple.
CV: remains RRR, +S1/S2, no m/r/g.
Resp: remains CTAB, no rales, wheezes, or rhonchi.
Skin: No rashes.
Neuro: CN 2-12 intact, non-focal.
Psych: agitated and upset
CT Brain: There is no evidence of acute hemorrhage. There is a 1.0 cm hypodensity within the anterior/inferior right frontal lobe white matter, possible subacute infarction. Consider MRI for further evaluation.
CTA Head: There is a 2 x 2 mm posteriorly directed saccular aneurysm along the left paraclinoid ICA. There is mild stenosis within the right paraclinoid ICA.
CTA Neck: No significant arterial stenosis. Left dominant vertebral artery. Groundglass opacities within the bilateral upper lobes possibly hypoventilatory change, less likely interstitial edema or infection.
MRI brain: 1.7 cm lesion in the right frontal lobe periventricular white matter with T2/FLAIR hyperintense signal, T1 hypointense signal, and hypoenhancement. Imaging characteristics are considered most suspicious for a low-grade glioma. Gliosis
from chronic ischemia or a solitary demyelinating lesion would be potential alternative but probably less likely considerations. No MRI evidence for an acute infarct.
R frontal lobe mass:
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
-Presented with L-sided weakness
-seen by neuro and neurosurgery
-s/p LP 07/26/24, follow CSF studies for demyelinating disease
-pt was for brain SPECT scan 07/29/24 but, since the test has been delayed by 24 hours, the patient would like to leave the hospital. I discussed this over [employer] with Dr. Mendoza and she has medically cleared the pt for discharge.
Other problems:
URI: started on cephalexin 500mg TID x 7 days
DM2: new Dx, cont diabetic diet (diet control only at this time), outpt f/u with PCP
Essential HTN: cont labetalol
Anxiety: from new diagnosis above, Xanax PRN
FULL/SCDs
Total time spent on d/c = 34 min. This included today's physical exam, progress note, review of laboratory and diagnostic data, preparation of discharge documents and prescriptions, and discussions about the pt's hospital course and discharge plan
with the patient and other healthcare or medical involved in the patient's care.
[2024-07-29 11:30] VITALS: BP 148/75
--- NOTE | 2024-07-29 11:44 | W.PN.HOSP.TC ---
Today's Communication/Plan
-
Discharge planning. Was for SPECT today, but given patient's preference, will DC
Assessment / Plan
Assessment / Plan
58-year-old female who presents with acute onset left sided arm and leg weakness
Left-sided weakness:
Initial suspicion for stroke given acute onset neurodeficits. Ruled out with subsequent imaging - DAPT discontinued
CTA with 1 cm hypodensity in inferior right frontal lobe.
MRI with 1.7 cm lesion in the right frontal lobe periventricular white matter, most suspicious for a low-grade glioma. No evidence of acute infarct.
-Lipid panel LDL 120, continue statin
-Appreciate neuro/neurosurg recs. Tumor vs demyelinating process
-status post LP, await results. For SPECT today, however patient prefers to be discharged today.
URI:
Chest congestion, nasal congestion:
On CTA, groundglass opacities noted in bilateral upper lobes.
-Continue Keflex
Elevated HbA1c
New diagnosis of diabetes mellitus vs prediabetes. HbA1c 6.6
-Diabetic diet
-Outpatient follow up
Essential hypertension:
-No prior diagnosis
-Continue Labetalol PRN
FULL/SCDs
Anticipated Discharge: Today
Subjective/Interval History
-
Date of Service: July 29, 2024
Objective Data
-
Vital Signs:
Vital Signs
Temp Pulse Resp BP Pulse Ox
98.8 F 71 18 157/77 97
07/29/24 07:30 07/29/24 07:30 07/29/24 07:30 07/29/24 07:30 07/29/24 07:30
I&O
07/28/24 07/29/24 07/30/24
06:59 06:59 06:59
Intake Total 1919 / 1679
Balance 1919 / 1679
Review of Systems
-
History Source: Patient
Constitutional: Denies Fever
Respiratory: Denies Cough or Trouble Breathing
Cardiac: Denies Chest Pain
Abdomen/GI: Denies Abdominal Pain, Diarrhea or Constipated
Genitourinary: Denies Dysuria
Physical Exam
-
General: Well Developed, Well Nourished, No Apparent Distress and Comfortable
HEENT: Normocephalic, Atraumatic and Moist Mucous Membranes
Respiratory: Clear to Auscultation and Non Labored Respirations; Negative Wheezes, Rales, Rhonchi or Crackles
Cardiac: Regular Rhythm and S1/S2; Negative Murmur, Rub or Calf Tenderness
Skin: Warm and Dry
Neuro: Awake, Alert, Oriented, No Motor Deficits and Nonfocal/Grossly Intact
Psych: Calm
--- NOTE | 2024-07-29 16:57 | W.DCSUMMARY ---
Discharge Summary
Discharge Data
Date of Admission: 07/26/24
Date of Discharge: 07/29/24
-
Pending Results: Yes
Additional Pending Results:
CSF analysis
Hospital Course
Discharging Physician : Shasha Balderas MD; Nazario Juan MD.
Disposition : Home
Primary care physician : Pedro Luis Hernandez Jr., MD.
Principal Discharge diagnosis : Right frontal lobe mass, upper respiratory infection, new diagnosis of type 2 diabetes mellitus
Chronic Discharge diagnosis : Hypothyroidism, history of hyperparathyroidism
Hospital Course :
HPI:
Patient is a 58-year-old female with past medical history significant for hypothyroidism and hx kidney stone who presented to [facility] ED for evaluation of left sided weakness. Patient stated that at approximately 0830 this morning she
had a heavy sensation in her left leg that worked its way up to her left arm that for a moment she almost felt she did not have control of them. She stated symptoms resolved so she went about her day, stopped for gas and when she got out of car
symptoms returned and she felt like she was unable to stand properly and was slightly off balance. She states that she has had a URI for past 2 weeks with cough, congestion and post nasal drip. Last week she reports a day with nausea and vomiting.
She denies fever, chills, chest pain, palpitations, dizziness, confusion, constipation, diarrhea or urinary symptoms.
Upon arrival to ED, she was hypertensive with other vitals stable. CBC and chemistries are unremarkable.
CT brain and CTA head/neck showed no evidence of bleeding, but CT brain showed an area of hypodensity in inferior right frontal lobe necessitating further testing. MRI brain revealed a 1.7 cm lesion suspicious for low-grade glioma or potentially a
solitary demyelinating lesion. Given no evidence of a stroke, aspirin and Plavix which was initially started was discontinued. Patient underwent lumbar puncture with CSF analysis for demyelinating disease. Results for this is pending. She was to
have a SPECT scan on day of discharge, but patient preferred to be discharged.
Lipid panel showed hyperlipidemia, atorvastatin 40 mg daily was started.
HbA1c was 6.6%. representing a potentially new diagnosis of diabetes mellitus/prediabetes. To be discussed with PCP.
She was discharged to home on 07/29 with strong recommendations to follow-up with neurology within a week, obtain SPECT scan, and follow-up with PCP.
Continue Keflex to complete 7 day course for URI.
Continue Labetalol and discuss HTN with PCP at follow up.
Important imaging findings :
07/25
CT Brain: There is no evidence of acute hemorrhage. There is a 1.0 cm hypodensity within the anterior/inferior right frontal lobe white matter, possible subacute infarction. Consider MRI for further evaluation.
CTA Head: There is a 2 x 2 mm posteriorly directed saccular aneurysm along the left paraclinoid ICA. There is mild stenosis within the right paraclinoid ICA.
CTA Neck: No significant arterial stenosis. Left dominant vertebral artery.
Groundglass opacities within the bilateral upper lobes possibly hypoventilatory change, less likely interstitial edema or infection.
Brain MRI 07/25:
1.7 cm lesion in the right frontal lobe periventricular white matter with T2/FLAIR hyperintense signal, T1 hypointense signal, and hypoenhancement. Imaging characteristics are considered most suspicious for a low-grade glioma. Gliosis from chronic
ischemia or a solitary demyelinating lesion would be potential alternative but probably less likely considerations.
No MRI evidence for an acute infarct.
Discharge Plan
-
Patient Disposition: Home (Routine Discharge)
Discharge Diagnosis/Procedures: Right frontal lobe mass, upper respiratory infection, new diagnosis of type 2 diabetes mellitus
Condition: Good
Diet: Diabetic, Carb Controlled
Activity: No restrictions
Driving Restrictions: As prior to admission
Bathing Restrictions: None
Activity Restrictions/Additional Instructions:
You need brain SPECT imaging [facility].
Referrals:
Pedro Luis Hernandez Jr., [Family Provider] - in less than 1 week
Dez Ashraf MD [Active] - in less than 1 week
Additional Discharge Medication Instructions: Your HbA1c is 6.6%. You should see your PCP shortly to discuss this. You need to stay on a diabetic diet.
Prescriptions:
New
atorvastatin 40 mg Tablet
40 mg PO QPM Qty: 30 0RF
cephalexin 500 mg Capsule
500 mg PO TID Qty: 12 0RF
labetalol 100 mg Tablet
100 mg PO BID Qty: 60 0RF
Continued
valacyclovir [Valtrex] 500 mg Tablet
500 mg PO DAILY
cholecalciferol (vitamin D3) [Vitamin D3] 25 mcg (1,000 unit) Tablet
25 mcg PO DAILY
Discharge Orders:
Discharge Patient (As Directed); Ordered 07/29/24
Ordered By: Nazario Juan
Discharge Date and Time
Discharge Date/Time: 07/29/24 11:42
Print Language: MALAY
[2024-07-30 18:19] LABS: Albumin Index 6.3 ratio (0.0-9.0); Albumin, CSF 27 mg/dL (0-35); Albumin, Serum 4292 mg/dL (3500-5200); CSF IgG Synthesis Rate 4.1 mg/d (<=8.0); CSF IgG/Albumin Ratio 0.17 ratio (0.09-0.25); CSF Oligoclonal Bands Negative (Negative); CSF Oligoclonal Bands Number 0 Bands (0-1); IgG 1066 mg/dL (768-1632); IgG, CSF 4.6 mg/dL (0.0-6.0)
== END 2024-07-29 11:42 | disposition home or self-care (01) | DRG 55 ==
LOC: 4 EAST ACU 15:43
PROVIDERS: Nurse Practitioner Family; Radiology Diagnostic Radiology; Student in an Organized Health Care Education/Training Program; ADMITTING PHYSICIAN Student in an Organized Health Care Education/Training Program; ATTENDING PHYSICIAN Internal Medicine; CONSULT PHYSICIAN Psychiatry & Neurology Clinical Neurophysiology; EMERGENCY PHYSICIAN Emergency Medicine; FAMILY PHYSICIAN Family Medicine; OTHER PHYSICIAN Neurological Surgery
PROC: 009U3ZX Drainage of Spinal Canal, Percutaneous Approach, Diagnostic (ICD-10-PCS; 2024-07-26)
DX: D43.0 Neoplasm of uncertain behavior of brain, supratentorial (principal); G81.94 Hemiplegia, unspecified affecting left nondominant side; E03.9 Hypothyroidism, unspecified; B00.9 Herpesviral infection, unspecified; I67.1 Cerebral aneurysm, nonruptured; E11.9 Type 2 diabetes mellitus without complications; E78.5 Hyperlipidemia, unspecified; J06.9 Acute upper respiratory infection, unspecified; I10 Essential (primary) hypertension; Z79.899 Other long term (current) drug therapy; Z82.3 Family history of stroke
CPT/HCPCS: 62328; 70496; 70498; 70553; 80048; 80061; 82040; 82042; 82247; 82784; 82945; 83036; 83916; 84075; 84157; 84450; 84460; 85025; 85027; 88108; 89051; 93005; 99285; A9575; Q9967

== ENCOUNTER → 2024-10-01 14:05 | Outpatient (REF) | payer OTHER, SELFPAY ==
--- NOTE | 2024-10-01 14:53 | PTCARENOTE ---
agitated saline echo contrast per protocol. tolerated. IV RAC, 2nd attempt, 22P. dcd at completion of test.
== END ==
LOC: RCS 14:05
PROVIDERS: ATTENDING PHYSICIAN Internal Medicine Cardiovascular Disease; FAMILY PHYSICIAN Nurse Practitioner Adult Health
DX: G45.9 Transient cerebral ischemic attack, unspecified (principal)
CPT/HCPCS: 93306

== ENCOUNTER → 2025-03-07 18:52 | Outpatient (REF) | payer OTHER, SELFPAY | LOC: MRI 18:52 | PROVIDERS: ATTENDING PHYSICIAN Radiology Neuroradiology; FAMILY PHYSICIAN Nurse Practitioner Adult Health | DX: G93.9 Disorder of brain, unspecified (principal) | CPT/HCPCS: 70553; A9575 ==